=== PATIENT | female | born 1935 | race Caucasian/White ===

== ENCOUNTER 2020-12-22 10:07 | Day surgery (SDC) | payer OTHER ==
[~2020-12-22 10:07] MED LIST: DOXAZOSIN MESYLA2 MG PO; ECOTRIN81 MG PO; LASIX20 MG PO; LOTREL 10-40 M1 EACH PO; LUMIGAN2.5 M1 OP; PENTOXIFYLLINE400 MG PO; SYNTHROID75 MCG PO; VASOFLEX TABLE1 EACH PO
== END 2020-12-22 22:00 | disposition home or self-care (01) ==
LOC: CIR.AMB 10:07
PROVIDERS: ATTEND Specialist
DX: N95.0 Postmenopausal bleeding (principal); Z20.822 Contact with and (suspected) exposure to COVID-19